=== PATIENT | female | born 1980 | race Hispanic/Latino ===

== ENCOUNTER 2023-04-10 01:59 | Emergency (ER) | payer OTHER ==
[~2023-04-10] VITALS: Ht 152.4 cm; Wt 65.8 kg
[2023-04-10] MEDS ORDERED: KETOROLAC TROMETHAMINE 30 MG/ML VIAL IV STA (02:26)
[2023-04-10] MEDS ORDERED: SODIUM CHLORIDE 0.9% 1000ML 1,000 ML IV ONE (02:30)
[2023-04-10] MEDS ORDERED: ONDANSETRON HCL INJ 2MG/ML 2ML 2 MG/ML VIAL IV STA (02:32)
[2023-04-10] MEDS ORDERED: SODIUM CHLORIDE 0.9% 1000ML 1,000 ML ONE (02:47)
[2023-04-10] MEDS ORDERED: KETOROLAC TROMETHAMINE 30 MG/ML VIAL ONE (02:47)
[2023-04-10] MEDS ORDERED: ONDANSETRON HCL INJ 2MG/ML 2ML 2 MG/ML VIAL ONE (02:47)
[2023-04-10 03:47] VITALS: BP 128/79; PULSE 80; RESP 17; TEMP 98.2
[2023-04-10] MEDS ORDERED: Morphine 4mg INJECTION 4 MG/ML INJ IV ONE (04:00)
[2023-04-10] MEDS ORDERED: Morphine 4mg INJECTION 4 MG/ML INJ ONE (04:02)
[2023-04-10 04:10] VITALS: O2SAT 99
[2023-04-10] MEDS ORDERED: ULTRAM 50MG50 MG PO (04:14)
== END 2023-04-10 04:46 | disposition home or self-care (01) ==
LOC: FSED 02:24
DX: R10.32 Left lower quadrant pain (principal); K57.90 Diverticulosis of intestine, part unspecified, without perforation or abscess without bleeding; R11.2 Nausea with vomiting, unspecified; K76.0 Fatty (change of) liver, not elsewhere classified
CPT/HCPCS: 74176; 99284; J1885; J2270; J2405; J7030

== ENCOUNTER 2024-12-09 16:24 | Emergency (ER) | payer OTHER ==
[~2024-12-09] VITALS: Ht 152.4 cm; Wt 70.5 kg
[~2024-12-09 16:24] MED LIST: ULTRAM 50MG50 MG PO
[2024-12-09 16:45] VITALS: TEMP 98.2
[2024-12-09] MEDS ORDERED: IOPAMIDOL 370 MG/ML 100 ML INFUS..BTL INJ ONE (17:26)
[2024-12-09] MEDS: SODIUM CHLORIDE 0.9% 1000ML 1,000 ML IV STA (17:53)
[2024-12-09] MEDS: KETOROLAC TROMETHAMINE 30 MG/ML VIAL IV ONE (17:53)
[2024-12-09] MEDS ORDERED: CEFDINIR300 MG PO (22:13)
[2024-12-09 22:19] VITALS: PULSE 82; RESP 18
[2024-12-09] MEDS ORDERED: AUGMENTIN 500-1 EACH PO (22:22)
[2024-12-09 22:28] VITALS: BP 137/90; PULSE 82; RESP 18; TEMP 98.2; O2SAT 98
== END 2024-12-09 22:28 | disposition home or self-care (01) ==
LOC: FSED 16:30
DX: M54.2 Cervicalgia (principal); R53.1 Weakness; Z87.19 Personal history of other diseases of the digestive system
CPT/HCPCS: 70491; 80053; 83518; 85025; 99284; J0696; J1885; J7030; Q9967